=== PATIENT | male | born 1950 | race Caucasian/White ===

== ENCOUNTER 2016-12-25 10:31 | Day surgery (SDC) | payer MEDICARE, BC ==
[2016-12-25] MEDS ORDERED: FENTANYL 100 MCG/2 ML VIAL ONE (11:43)
--- NOTE | 2016-12-25 12:04 | CONSULTATION ---
REVIEW OF SYSTEMS: GENERAL: SKIN: HEENT: NECK: RESPIRATORY: CARDIOVASCULAR: GASTROINTESTINAL: GENITOURINARY: MUSCULOSKELETAL: NEUROLOGICAL: PSYCHIATRIC: ENDOCRINE: HEMATOLOGY: PHYSICAL EXAMINATION: GENERAL: INTEGUMENTARY: HEAD AND NECK: EYE: ENMT: CHEST AND LUNG: CARDIOVASCULAR: ABDOMEN: GENITOURINARY: RECTAL: PERIPHERAL VASCULAR: NEUROLOGIC MUSCULOSKELETAL: NEUROPSYCHIATRIC: LYMPHATIC: Assessment and Plan - Date of Encounter Date of Encounter: 12/25/16 - Time Spent With Patient Total time spent with greater than 50% in coordination of care (as documented) at patient's floor/unit and/or counseling patient:
== END 2016-12-25 12:35 | disposition home or self-care (01) ==
LOC: GI 10:31 → SDS 10:31 → GI 12:35
PROVIDERS: ATTEND Internal Medicine Cardiovascular Disease
DX: I48.0 Paroxysmal atrial fibrillation (principal); I25.10 Atherosclerotic heart disease of native coronary artery without angina pectoris; E66.01 Morbid (severe) obesity due to excess calories; G47.33 Obstructive sleep apnea (adult) (pediatric); S70.12XA Contusion of left thigh, initial encounter; R91.1 Solitary pulmonary nodule; Z79.899 Other long term (current) drug therapy
CPT/HCPCS: 410; 92960; J3010